=== PATIENT | female | born 1965 | race Caucasian/White ===

== ENCOUNTER 2018-07-03 17:02 | Emergency (ER) | payer BC, OTHER ==
[~2018-07-03] VITALS: Ht 167.6 cm; Wt 93.0 kg
[2018-07-03] MEDS ORDERED: LISI10TA2 (17:38)
[2018-07-03] MEDS ORDERED: LEVO50TA6 (17:38)
--- NOTE | 2018-07-03 17:53 | ED Upper Extremity ---
General Chief Complaint: Upper Extremity Stated Complaint: R ARM INJ Nursing Triage Note: TO ROOM REPORTS WAS BOWLING FELT POP IN [facility]/O PAIN FROM ELBOW TO SHOULDER Nursing Sepsis Screen: No Definite Risk Source: patient, family Exam Limitations: no limitations History of Present Illness Date Seen by Provider: Jul 03, 2018 Time Seen by Provider: 17:53 Initial Comments Patient is a 52-year-old female who presents to the emergency room with complaints of right shoulder pain. She reports that she was bowling yesterday and her thumb got stuck in the ball and caused her shoulder to be pulled straightforwardly when she tried to release the ball. She reports feeling a "pop " in the shoulder and has been having pain since. She reports the pain is controlled by Tylenol but is just getting worried about the shoulder and once it looked at and also she is concerned that she cannot go to work tomorrow. Onset: just prior to arrival Pain/Injury Location: right shoulder Method of Injury: sports injury Modifying Factors: Improves With Immobilization; Worse With Movement Allergies and Home Medications Allergies Coded Allergies: NSAIDS (Non-Steroidal Anti-Inflamma (Verified Allergy, Unknown, 07/03/18) diphenhydramine (Verified Allergy, Unknown, 07/03/18) duloxetine (Verified Allergy, Unknown, 07/03/18) Patient Home Medication List Home Medication List Reviewed: Yes Constitutional: see HPI; No chills, No fever Musculoskeletal: see HPI, joint pain (right shoulder) All Other Systems Reviewed Negative Unless Noted: Yes Past Rlvfrgz-Eopqlp-Xehmus Hx Past Med/Social Hx: Reviewed Nursing Past Med/Soc Hx Patient Social History Alcohol Use: Denies Use Recreational Drug Use: No Smoking Status: Never a Smoker Recent Foreign Travel: No Contact w/Someone Who Travel: No Recent Infectious Disease Expo: No Past Medical History Surgeries: Yes ( D&C ) Orthopedic, Tubal Ligation Cardiac: No Neurological: No Genitourinary: No Gastrointestinal: No Musculoskeletal: Yes Arthritis, Fibromyalgia Family Medical History Reviewed Nursing Family Hx Physical Exam Vital Signs Vital Signs - First Documented 07/03/18 17:26 Temp 97.0 Pulse 68 Resp 18 B/P (MAP) 157/92 (113) Pulse Ox 98 O2 Delivery Room Air Capillary Refill : Less Than 3 Seconds Height, Weight, BMI Height: 5'6.00" Weight: 205lbs. oz. 92.803988ww; BMI Method:Stated General Appearance: WD/WN, no apparent distress Cardiovascular: regular rate, rhythm, no edema, no gallop, no JVD, no murmur Respiratory: chest non-tender, lungs clear, normal breath sounds, no respiratory distress, no accessory muscle use Shoulder: normal inspection; No bone tenderness, No deformity, No ecchymosis; pain (Increased pain with full ROM); No swelling Elbow/Forearm: normal inspection, non-tender, no evidence of injury, normal ROM , Bilateral Wrist: Yes normal inspection, Yes non-tender, Yes no evidence of injury, Yes normal ROM Neurologic/Psychiatric: alert, normal mood/affect, oriented x 3 Skin: normal color, warm/dry Progress/Results/Core Measures Results/Orders My Orders Vital Signs/I&O Blood Pressure Mean: 113 Progress Progress Note : Progress Note I have seen and evaluated the patient. She was informed of plans for discharge. She request work note due to her job being very physically demanding. She agrees with close follow up with her PCP. Return precautions given. Diagnostic Imaging Diagonstic Imaging: Xray Plain Films/CT/US/NM/MRI: other (shoulder) Comments NAME: AUSTYN GRIFFIN MED REC#: [id number] PT STATUS: DEP ER : 1965 PHYSICIAN: JAIME GONZALES ADMIT DATE: 07/03/18/ER Signed Date of Exam: 07/03/18 SHOULDER, RIGHT, 3 VIEWS PATIENT HISTORY: Pain in proximal right humerus distal to the shoulder when abducting the right arm away from the body. Pain since throwing a bowling ball 3 hours ago.. TECHNIQUE: 3 views of the right shoulder. COMPARISON: None FINDINGS: No acute fracture or dislocation is seen in the right shoulder. Alignment is normal. The joint spaces are generally preserved. There is a small subacromial spur. IMPRESSION: 1. No acute osseous abnormality is seen in the right shoulder. 2. Small subacromial spur, which may predispose to impingement. Dictated by: Dictated on workstation # [id number] Dict: 07/03/181913 Trans: 07/03/182213 Interpreted by: INGRID HYLTON MD Electronically signed by: INGRID HYLTON MD 07/03/18 2214 Departure Impression Primary Impression: Right shoulder strain Additional Impression: Bone spur Disposition: 01 HOME, SELF-CARE Condition: Stable/Unchanged Departure-Patient Inst. Decision time for Depature: 18:35 Referrals: NO,LOCAL PHYSICIAN (PCP) Primary Care Physician MARCIA MARTINEZ MD Patient Instructions: Shoulder Sprain Add. Discharge Instructions: Use Tylenol as directed by the bottle. Follow-up with your primary care provider within 1 week for recheck. Follow-up with orthopedic surgeon within 1 week for recheck. Return back to the emergency room for increased pain, swelling , worsening symptoms, or any other concerns as needed. All discharge instructions reviewed with patient and/or family. Voiced understanding. Work/School Note: Work Release Form Date Seen in the Emergency Department: Jul 03, 2018 Return to Work: Jul 06, 2018 JAIME GONZALES Jul 03, 2018 17:53
[2018-07-03 19:10] VITALS: BP 157/92
--- NOTE | 2018-07-03 19:18 | Diagnostic Imaging Report ---
PATIENT HISTORY: Pain in proximal right humerus distal to the shoulder when abducting the right arm away from the body. Pain since throwing a bowling ball 3 hours ago.. TECHNIQUE: 3 views of the right shoulder. COMPARISON: None FINDINGS: No acute fracture or dislocation is seen in the right shoulder. Alignment is normal. The joint spaces are generally preserved. There is a small subacromial spur. IMPRESSION: 1. No acute osseous abnormality is seen in the right shoulder. 2. Small subacromial spur, which may predispose to impingement. Dictated by: Dictated on workstation # [id number]
== END 2018-07-03 19:16 | disposition home or self-care (01) ==
LOC: ER 17:04
DX: S46.911A Strain of unspecified muscle, fascia and tendon at shoulder and upper arm level, right arm, initial encounter (principal); Z88.6 Allergy status to analgesic agent; Z88.8 Allergy status to other drugs, medicaments and biological substances; Z98.51 Tubal ligation status; W21.09XA Struck by other hit or thrown ball, initial encounter; Y93.54 Activity, bowling
CPT/HCPCS: 73030